=== PATIENT | male | born 1985 | race Caucasian/White ===

== ENCOUNTER 2021-05-26 10:26 | Outpatient (REF) | payer OTHER, SELFPAY ==
[2021-05-26 11:27] LABS: MANUAL DIFF FLAG NO
[2021-05-26 11:32] LABS: Basophils Percent Auto 0.5 % (0-2); Eosinophils Percent Auto 0.7 % (0-4); Hematocrit 46.2 % (42.0-52.0); Hemoglobin 15.6 g/dl (14.0-18.0); Imm Gran Abs Auto 0.03 X10*3/uL (0.00-0.03); Imm Gran Pct Auto 0.5 % (0.0-0.4); Lymphocytes Absolute Auto 1.7 X10*3/uL (1.2-4.9); Lymphocytes Percent Auto 29.2 % (20-40); Mean Corpuscular HGB Conc 33.8 g/dl (31.0-36.0); Mean Corpuscular Hemoglobin 29.4 pg (27.0-33.0); Mean Corpuscular Volume 87.2 fL (80.0-98.0); Mean Platelet Volume 10.2 fL (9.4-12.4); Monocytes Absolute Auto 0.4 X10*3/uL (0.1-1.2); Monocytes Percent Auto 7.7 % (2-11); Neutrophils Absolute Auto 3.5 x10*3/uL (2.0-8.3); Neutrophils Percent Auto 61.4 % (45-73); Platelet Count 276 X10*3/uL (160-400); Red Cell Distribution Width 12.3 % (11.0-16.0); White Blood Count 5.8 X10*3/uL (4.8-10.8)
[2021-05-26 12:21] LABS: Alanine Aminotransferase 47 U/L (0-40); Albumin Level 4.5 g/dL (3.5-5.0); Alkaline Phosphatase 62 U/L (39-117); Anion Gap 12 (12-20); Aspartate Amino Transferase 23 U/L (5-37); Bilirubin Total 1.4 mg/dL (0.0-1.0); Blood Urea Nitrogen 16 mg/dL (9-16); Calcium 10.2 mg/dL (8.4-10.2); Carbon Dioxide 28 mmol/L (22-29); Chloride 104 mmol/L (96-108); Cholesterol 214 mg/dL; Estimated Glomerular Filt Rate > 60; Glucose Fasting 93 mg/dL (60-99); HDL Cholesterol 39 mg/dL; LDL Cholesterol Calculated 143 mg/dl; Potassium 5.1 mmol/L (3.3-5.1); Sodium 139 mmol/L (135-145); TSH reflex Free T4 1.84 uIU/mL (0.32-4.0); Total Protein 7.3 g/dL (6.5-8.0); Triglycerides 163 mg/dL
[2021-05-31 22:31] LABS: Tetanus Antitoxiod Antibody 2.66 IU/mL
== END 2021-05-26 10:27 | disposition home or self-care (01) ==
LOC: HO.HMGCLDS 10:26
PROVIDERS: Visit Provider Internal Medicine
DX: Z00.01 Encounter for general adult medical examination with abnormal findings (principal); R03.0 Elevated blood-pressure reading, without diagnosis of hypertension; E66.09 Other obesity due to excess calories; Z28.39 Other underimmunization status
CPT/HCPCS: 36415; 80053; 80061; 84443; 85025; 86774

== ENCOUNTER 2022-05-28 14:51 | Outpatient (REF) | payer OTHER, SELFPAY ==
[2022-05-28 16:29] LABS: MANUAL DIFF FLAG NO
[2022-05-28 16:31] LABS: Basophils Percent Auto 0.5 % (0-2); Eosinophils Absolute Auto 0.1 X10*3/uL (0.0-0.4); Eosinophils Percent Auto 0.8 % (0-4); Hematocrit 43.9 % (42.0-52.0); Hemoglobin 14.8 g/dl (14.0-18.0); Imm Gran Abs Auto 0.02 X10*3/uL (0.00-0.03); Imm Gran Pct Auto 0.3 % (0.0-0.4); Lymphocytes Absolute Auto 1.7 X10*3/uL (1.2-4.9); Lymphocytes Percent Auto 27.4 % (20-40); Mean Corpuscular HGB Conc 33.7 g/dl (31.0-36.0); Mean Corpuscular Hemoglobin 29.4 pg (27.0-33.0); Mean Corpuscular Volume 87.3 fL (80.0-98.0); Mean Platelet Volume 10.3 fL (9.4-12.4); Monocytes Absolute Auto 0.4 X10*3/uL (0.1-1.2); Monocytes Percent Auto 7.2 % (2-11); Neutrophils Absolute Auto 3.9 x10*3/uL (2.0-8.3); Neutrophils Percent Auto 63.8 % (45-73); Platelet Count 272 X10*3/uL (160-400); Red Blood Count 5.03 X10*6/uL (4.60-5.80); Red Cell Distribution Width 12.3 % (11.0-16.0); White Blood Count 6.1 X10*3/uL (4.8-10.8)
[2022-05-28 16:51] LABS: Alanine Aminotransferase 47 U/L (0-40); Albumin Level 4.6 g/dL (3.5-5.0); Alkaline Phosphatase 61 U/L (39-117); Anion Gap 12 (12-20); Aspartate Amino Transferase 22 U/L (5-37); Bilirubin Total 1.4 mg/dL (0.0-1.0); Blood Urea Nitrogen 14 mg/dL (9-16); Calcium 9.9 mg/dL (8.4-10.2); Carbon Dioxide 28 mmol/L (22-29); Chloride 108 mmol/L (96-108); Estimated Glomerular Filt Rate > 60; Glucose Random 100 mg/dL (60-115); Potassium 4.7 mmol/L (3.3-5.1); Sodium 143 mmol/L (135-145)
[2022-05-30 09:43] LABS: LDL Cholesterol Direct 163 mg/dL (<100)
== END 2022-05-28 14:52 | disposition home or self-care (01) ==
LOC: HO.HMGCLDS 14:51
PROVIDERS: PCP Internal Medicine; Visit Provider Internal Medicine
DX: Z00.01 Encounter for general adult medical examination with abnormal findings (principal); I10 Essential (primary) hypertension; R79.89 Other specified abnormal findings of blood chemistry
CPT/HCPCS: 36415; 80053; 83721; 85025

== ENCOUNTER 2022-11-23 09:23 | Outpatient (AMB) | payer OTHER, SELFPAY ==
[2022-11-23 09:25] VITALS: BP 134/82; PULSE 75; O2SAT 98; BMI 34.4
--- NOTE | 2022-11-23 09:25 | MHC.PC.OV ---
Vital Signs 11/23/22 09:25 Height 6 ft 3 in Weight 275 lb BMI 34.4 BP 134/82 Blood Pressure Location Rt brachial Position Sitting Pulse 75 Pulse Source Pulse Oximeter Pulse Oximetry (%) 98 Oxygen Delivery Method Room Air Intake Visit Reasons: 6m follow up Allergies No Known Allergies Allergy (Verified 11/23/22 09:34) Medication List - Last Reconciled 11/23/22 by Laxmi Alvarez MD losartan 25 mg PO DAILY 90 days Tobacco use date assessed: 11/23/22 Dental Screening Dental Screen Date: 11/23/22 Did you have a dental visit in the last 12 months?: Yes Did you have a dental problem in the last 6 months where you did not have access to dental care?: No Was dental information given to patient?: Patient has dentist HPI 6m follow up HPI Details Patient is 37-year-old gentleman came in today for his 6 month follow-up appointment on blood pressure Patient is on losartan 25 mg, tolerating medication, blood pressure is well controlled it is 134/82 today however at home he says that it runs around 120s systolic He is due for labs, order placed Patient already have appointment in 6 month, next visit he will do labs fasting. BMI is elevated at 34.4, patient is already working on it he has cut down on soda and is mindful of healthy eating. He is also going to gym. Appointment with dietitian offered to patient, patient is not interested at this time. He offers no new complaints today PFSH Family History Other Substance use disorder Social History Housing: House Patient Tobacco Use Status: Current everyday Tobacco user Cigarettes Per Day: 8 e-Cigarette/Vaping Use: Never Used Current occupational status: unemployed Cognitive needs: No Hearing needs: No Vision needs: No Questionnaire PHQ-9 Over the last 2 weeks, how often have you been bothered by any of the following problems? 1. Little interest or pleasure in doing things: not at all 2. Feeling down, depressed, or hopeless: not at all 3. Trouble falling or staying asleep, or sleeping too much: not at all 4. Feeling tired or having little energy: not at all 5. Poor appetite or overeating: not at all 6. Feeling bad about yourself - or that you are a failure or have let yourself or your family down: not at all 7. Trouble concentrating on things, such as reading the newspaper or watching television: not at all 8. Moving or speaking so slowly that other people could have noticed. Or the opposite - being so fidgety or restless that you have been moving around a lot more than usual: not at all 9. Thoughts that you would be better off or of hurting yourself in some way: not at all Total score: 0 Depression Screening Interpretation: Negative Depression Screening Done: Yes 20287 - PHQ-9 Billing: Yes Source: Developed by Drs. Kenji Calvert, Sara Jordan, Alfredito Spangler and colleagues, with an educational jesus from [employer]. Thrive Questionnaire Date Thrive assessed: 05/28/22 AUDIT C Alcohol Use Questionnaire (AUDIT-C) 1. How often do you have a drink containing alcohol?: Monthly or less 2. How many drinks containing alcohol do you have on a typical day when you are drinking?: 1 or 2 3. How often do you have six or more drinks on one occasion?: Never Total Score: 1 Score Reviewed/Action Taken: Yes MITCH-7 AMB Questionnaire MITCH-7 Date MITCH - 7 assessed: 05/28/22 Source: Developed by Drs. Kenji Calvert, Sara Jordan, Alfredito Spangler and colleagues, with an educational jesus from [employer]. Review of Systems Const Denies chills, Denies excessive sweating, Denies fever(s) and Denies poor appetite Eyes Denies blurry vision and Denies eye pain ENT Denies disequilibrium, Denies sore throat, Denies throat swelling and Denies tongue swelling Card Denies chest pain at rest, Denies radiating jaw, neck or arm pain and Denies paroxysmal nocturnal dyspnea Resp Denies cough and Denies hemoptysis GI Denies melena, Denies change in stool character, Denies coffee ground emesis and Denies vomiting Musc Reports as per HPI Skin/Breast Reports as per HPI Neuro Denies tremor(s) and Denies disequilibrium Endo Denies cold intolerance and Denies excessive sweating Aller/Immun Denies throat swelling and Denies tongue swelling Physical exam (Primary Care) Vital Signs: Last Vital Signs Pulse 75 10/10/23 09:25 BP 134/82 11/23/22 09:25 Pulse Ox 98 11/23/22 09:25 Oxygen Delivery Method Room Air 11/23/22 09:25 BMI result Body Mass Index 34.4 Tobacco/Smoking Status: Tobacco use Status Tobacco use date assessed 11/23/22 11/23/22 09:34 Patient Tobacco Use Status Current everyday Tobacco 11/23/22 09:26 e-Cigarette/Vaping Use Never Used 11/23/22 09:26 PHQ-9: PHQ-9 Score PHQ-9: Total score 0 11/23/22 09:45 Depression Screening Interpretation: Negative Thrive Assessment: Date of Thrive Assessment Date Thrive assessed 05/28/22 11/23/22 09:26 Const General: cooperative, comfortable and no acute distress Orientation/consciousness: patient oriented x3 HENMT Head: Yes normocephalic and Yes atraumatic Ears: hearing grossly normal bilaterally Eyes General: appearance normal, both eyes and all related structures Neck Neck: Yes no lymphadenopathy and No tracheal deviation Resp Effort & Inspection: normal respiratory effort, able to speak in complete sentences and no audible wheezes Cardio Rhythm: regular rhythm Heart sounds: S1 normal heart sound present and S2 normal heart sound present GI Palpation (GI): Soft to palpation and nontender Auscultation: normal bowel sounds Skin General skin exam: turgor normal Neuro General: patient oriented x3 and moves all extremities Gait exam (Neuro): Normal gait present Extrem Right lower extremity: no edema Left lower extremity: no edema Psych Affect: normal affect Attitude: cooperative Assessment and Plan Assessment & Plan (1) Hypertension, essential: Code(s): I10 - Essential (primary) hypertension (2) LFT elevation: Code(s): R79.89 - Other specified abnormal findings of blood chemistry (3) Obesity due to excess calories: Code(s): E66.09 - Other obesity due to excess calories Qualifiers: Body mass index: BMI 34.0-34.9 Obesity classification: adult class 1 (BMI 30 - 34.9) Serious obesity comorbidity presence: with serious comorbidity Qualified Code(s): E66.09 - Other obesity due to excess calories; Z68.34 - Body mass index [BMI] 34.0-34.9, adult Plan Patient is 37-year-old gentleman came in today for his 6 month follow-up appointment on blood pressure Patient is on losartan 25 mg, tolerating medication, blood pressure is well controlled it is 134/82 today however at home he says that it runs around 120s systolic He is due for labs, order placed Patient already have appointment in 6 month, next visit he will do labs fasting. His liver enzymes are slightly elevated but stable BMI is elevated at 34.4, patient is already working on it he has cut down on soda and is mindful of healthy eating. He is also going to gym. Appointment with dietitian offered to patient, patient is not interested at this time. He offers no new complaints today Orders: Orders Lipid Panel 6 Months E66.09 - Other obesity due to excess calories, I10 - Essential (primary) hypertension, R79.89 - Other specified abnormal findings of blood chemistry Comprehensive Met. Panel Today E66.09 - Other obesity due to excess calories, I10 - Essential (primary) hypertension, R79.89 - Other specified abnormal findings of blood chemistry Complete Blood Count Auto Diff 6 Months E66.09 - Other obesity due to excess calories, I10 - Essential (primary) hypertension, R79.89 - Other specified abnormal findings of blood chemistry Comprehensive [place]. Panel Fast 6 Months E66.09 - Other obesity due to excess calories, I10 - Essential (primary) hypertension, R79.89 - Other specified abnormal findings of blood chemistry Medications: Refilled losartan 25 mg PO DAILY 90 tabs 0RF 90 days Coding Level of Care Code Est Pt Level 4 (71503) Diagnoses Hypertension, essential I10 LFT elevation R79.89 Class 1 obesity due to excess calories with serious comorbidity and body mass index (BMI) of 34.0 to 34.9 in adult E66.09; Z68.34 Body mass index: BMI 34.0-34.9 Obesity classification: adult class 1 (BMI 30 - 34.9) Serious obesity comorbidity presence: with serious comorbidity
== END 2022-11-23 10:19 | disposition home or self-care (01) ==
PROVIDERS: Visit Provider Internal Medicine
DX: I10 Essential (primary) hypertension (principal); R79.89 Other specified abnormal findings of blood chemistry; E66.09 Other obesity due to excess calories; Z68.34 Body mass index [BMI] 34.0-34.9, adult
CPT/HCPCS: 99214

== ENCOUNTER 2022-11-23 09:46 | Outpatient (REF) | payer OTHER, SELFPAY | END 2022-11-23 09:47 | disposition home or self-care (01) | LOC: HO.HMGCLDS 09:46 | PROVIDERS: PCP Internal Medicine; Visit Provider Internal Medicine | DX: R79.89 Other specified abnormal findings of blood chemistry (principal); E66.09 Other obesity due to excess calories; I10 Essential (primary) hypertension | CPT/HCPCS: 36415; 80053 ==

== ENCOUNTER 2023-06-21 12:28 | Outpatient (AMB) | payer OTHER, SELFPAY ==
[2023-06-21 12:30] VITALS: BP 136/88; PULSE 82; O2SAT 96; BMI 35.5
--- NOTE | 2023-06-21 12:30 | A.OFFPC_ITS ---
Vital Signs 06/21/23 12:30 Height 6 ft 3 in Weight 284 lb 6 oz BMI 35.5 BP 136/88 Blood Pressure Location Rt brachial Position Sitting Pulse 82 Pulse Source Pulse Oximeter Pulse Oximetry (%) 96 Oxygen Delivery Method Room Air Intake Visit Reasons: Annual PE Allergies No Known Allergies Allergy (Verified 06/21/23 12:30) Medication List - Last Reconciled 06/21/23 by Laxmi Alvarez MD losartan 25 mg PO DAILY 90 days Tobacco use date assessed: 06/21/23 Dental Screening Dental Screen Date: 06/21/23 Did you have a dental visit in the last 12 months?: Yes Did you have a dental problem in the last 6 months where you did not have access to dental care?: No Was dental information given to patient?: Patient has dentist HPI Annual PE HPI Details Patient is a 38-year-old gentleman came in today for physical examination Patient is taking only 1 medication for blood pressure, losartan 25 mg, tolerating medication no side effects Blood pressure is stable Patient is due for labs, order placed BMI is elevated need to lose weight Follow-up 6 months PFSH Family History Other Substance use disorder Social History Housing: House Patient Tobacco Use Status: Former Tobacco user Quit Date: 2021 Cigarettes Per Day: 8 e-Cigarette/Vaping Use: Never Used Current occupational status: unemployed Cognitive needs: No Hearing needs: No Vision needs: No Questionnaire PHQ-9 Over the last 2 weeks, how often have you been bothered by any of the following problems? 1. Little interest or pleasure in doing things: not at all 2. Feeling down, depressed, or hopeless: not at all 3. Trouble falling or staying asleep, or sleeping too much: not at all 4. Feeling tired or having little energy: not at all 5. Poor appetite or overeating: not at all 6. Feeling bad about yourself - or that you are a failure or have let yourself or your family down: not at all 7. Trouble concentrating on things, such as reading the newspaper or watching television: not at all 8. Moving or speaking so slowly that other people could have noticed. Or the opposite - being so fidgety or restless that you have been moving around a lot more than usual: not at all 9. Thoughts that you would be better off or of hurting yourself in some way: not at all Total score: 0 Depression Screening Interpretation: Negative Depression Screening Done: Yes 35206 - PHQ-9 Billing: Yes Source: Developed by Drs. Kenji Calvert, Sara Jordan, Alfredito Spangler and colleagues, with an educational jesus from [employer]. Thrive Questionnaire Date Thrive assessed: 06/21/23 I am a: Patient What is your living situation today?: I have a steady place to live Within the past 12 months, did the food you bought not last and you didn't have the money to get more?: Never true Within the past 12 months, did you worry whether your food would run out before you got money to buy more?: Never true Do you have trouble paying for medicines?: No Do you have trouble getting transportation to medical appointments?: No Do you have trouble paying your heating and electricity bill?: No Do you have trouble taking care of your child, family member or friend?: No Do you have trouble with day-to-day activities such as bathing, preparing meals, shopping, managing finances, etc.?: No Are you currently unemployed and looking for a job?: No Are you interested in more education?: Yes Please select the resources that you would like help with: None Currently or been in a relationship where the following occur: no concerns reported THRIVE Score: 0 AUDIT C Alcohol Use Questionnaire (AUDIT-C) 1. How often do you have a drink containing alcohol?: Monthly or less 2. How many drinks containing alcohol do you have on a typical day when you are drinking?: 1 or 2 3. How often do you have six or more drinks on one occasion?: Never Total Score: 1 Score Reviewed/Action Taken: Yes MITCH-7 AMB Questionnaire MITCH-7 Date MITCH - 7 assessed: 06/21/23 Feeling nervous, anxious, or on edge: 0 = Not at all Not being able to stop or control worryin = Not at all Worrying too much about different things: 0 = Not at all Trouble relaxin = Not at all Being so restless that it is hard to sit still: 0 = Not at all Becoming easily annoyed or irritable: 0 = Not at all Feeling afraid as if something awful might happen: 0 = Not at all Total MITCH-7 score (0-4 normal; 5-9 mild; 10-14 moderate; 15-21 severe): 0 Source: Developed by Drs. Kenji Calvert, Sara Jordan, Alfredito Spangler and colleagues, with an educational jesus from [employer]. MITCH-7 Assessment Billing MITCH-7 Assessment Tool: MITCH-7 Assessment 16718 Review of Systems Const Denies chills, Denies fever(s) and Denies headache(s) Eyes Denies blurry vision ENT Denies headache(s), Denies nasal discharge, Denies nasal obstruction, Denies odynophagia and Denies sinus pain Card Denies chest pain at rest and Denies chest pain with activity Resp Denies cough and Denies hemoptysis GI Denies diarrhea, Denies odynophagia, Denies vomiting and Denies hematemesis Reports as per HPI Musc Denies abnormal gait Skin/Breast Reports as per HPI Neuro Denies Neuro-related abnormal movements, Denies Abnormal speech present, Denies abnormal gait, Denies headache(s) and Denies Sensory deficit (Neuro) Psych Denies mood swings and Denies paranoia Endo Reports as per HPI [place]/Lymph Reports as per HPI Aller/Immun Reports as per HPI Physical exam (Primary Care) Vital Signs: Last Vital Signs Pulse 82 06/21/23 12:30 BP 136/88 06/21/23 12:30 Pulse Ox 96 06/21/23 12:30 Oxygen Delivery Method Room Air 06/21/23 12:30 BMI result Body Mass Index 35.5 Tobacco/Smoking Status: Tobacco use Status Tobacco use date assessed 06/21/23 06/21/23 12:35 Patient Tobacco Use Status Former Tobacco user 06/21/23 12:35 e-Cigarette/Vaping Use Never Used 06/21/23 12:35 Depression Screening Interpretation: Negative Thrive Assessment: Date of Thrive Assessment Date Thrive assessed 05/28/22 06/21/23 12:35 Currently or been in a relationship where the following occur: no concerns reported Const General: cooperative, comfortable and no acute distress Orientation/consciousness: patient oriented x3 HENMT Head: Yes normocephalic and Yes atraumatic Eyes General: appearance normal, both eyes and all related structures Pupils: Equal, round and reactive pupils present EOM: EOMs intact bilaterally Neck Neck: Yes supple and No lymphadenopathy Thyroid: Thyroid normal Lymphatic: no lymphadenopathy noted Resp Effort & Inspection: normal respiratory effort and able to speak in complete sentences Auscultation: clear to auscultation bilaterally Cardio Heart sounds: S1 normal heart sound present and S2 normal heart sound present GI Palpation (GI): Soft to palpation and nontender Auscultation: normal bowel sounds General: Yes no CVA tenderness Back/Spine/Pelvis Back: no CVA tenderness Skin General skin exam: elasticity normal and turgor normal Neuro General: patient oriented x3 and gait normal Cranial nerves: Yes Equal, round and reactive pupils present Speech: No Abnormal speech present Sensory Exam: No Sensory deficit (Neuro) Coordination: tandem gait normal and Romberg test negative Extrem General: Yes normal exam except as noted and No edema Assessment and Plan Assessment & Plan (1) Encounter for general adult medical examination with abnormal findings: Code(s): Z00.01 - Encounter for general adult medical examination with abnormal findings (2) Hypertension, essential: Code(s): I10 - Essential (primary) hypertension (3) LFT elevation: Code(s): R79.89 - Other specified abnormal findings of blood chemistry (4) Obesity due to excess calories: Code(s): E66.09 - Other obesity due to excess calories Qualifiers: Obesity classification: adult class 1 (BMI 30 - 34.9) Serious obesity comorbidity presence: with serious comorbidity Body mass index: BMI 34.0-34.9 Qualified Code(s): E66.09 - Other obesity due to excess calories; Z68.34 - Body mass index [BMI] 34.0-34.9, adult Plan Patient is a 38-year-old gentleman came in today for physical examination Patient is taking only 1 medication for blood pressure, losartan 25 mg, t olerating medication no side effects Blood pressure is stable Patient is due for labs, order placed BMI is elevated need to lose weight Follow-up 6 months Orders: Orders Comprehensive Met. Panel Today I10 - Essential (primary) hypertension, R79.89 - Other specified abnormal findings of blood chemistry, Z00.01 - Encounter for general adult medical examination with abnormal findings LDL Cholesterol Direct Today I10 - Essential (primary) hypertension, R79.89 - Other specified abnormal findings of blood chemistry, Z00.01 - Encounter for general adult medical examination with abnormal findings Complete Blood Count Auto Diff Today I10 - Essential (primary) hypertension, R79.89 - Other specified abnormal findings of blood chemistry, Z00.01 - Encounter for general adult medical examination with abnormal findings Coding Level of Care Code Est Pt Prev Care 40-64y(99323) Diagnoses Encounter for general adult medical examination with abnormal findings Z00.01 Hypertension, essential I10 LFT elevation R79.89 Class 1 obesity due to excess calories with serious comorbidity and body mass index (BMI) of 34.0 to 34.9 in adult E66.09; Z68.34 Obesity classification: adult class 1 (BMI 30 - 34.9) Serious obesity comorbidity presence: with serious comorbidity Body mass index: BMI 34.0-34.9 Additional Codes MITCH-7 Assessment Billing - MITCH-7 Assessment Tool: MITCH-7 Assessment [id number] ([id number])
== END 2023-06-21 14:30 | disposition home or self-care (01) ==
PROVIDERS: PCP Internal Medicine; Visit Provider Internal Medicine
DX: Z00.00 Encounter for general adult medical examination without abnormal findings (principal); I10 Essential (primary) hypertension; Z68.34 Body mass index [BMI] 34.0-34.9, adult; E66.09 Other obesity due to excess calories; R79.89 Other specified abnormal findings of blood chemistry
CPT/HCPCS: 99395

== ENCOUNTER 2023-06-21 12:51 | Outpatient (REF) | payer OTHER, SELFPAY ==
[2023-06-21 16:21] LABS: MANUAL DIFF FLAG NO
[2023-06-21 16:38] LABS: Basophils Percent Auto 0.6 % (0-2); Eosinophils Absolute Auto 0.1 X10*3/uL (0.0-0.4); Hematocrit 44.1 % (42.0-52.0); Imm Gran Abs Auto 0.02 X10*3/uL (0.00-0.03); Imm Gran Pct Auto 0.4 % (0.0-0.4); Lymphocytes Absolute Auto 1.8 X10*3/uL (1.2-4.9); Lymphocytes Percent Auto 33.5 % (20-40); Mean Corpuscular Hemoglobin 29.9 pg (27.0-33.0); Mean Corpuscular Volume 87.8 fL (80.0-98.0); Mean Platelet Volume 10.2 fL (9.4-12.4); Monocytes Absolute Auto 0.4 X10*3/uL (0.1-1.2); Neutrophils Percent Auto 56.5 % (45-73); Platelet Count 280 X10*3/uL (160-400); Red Blood Count 5.02 X10*6/uL (4.60-5.80); Red Cell Distribution Width 12.2 % (11.0-16.0); White Blood Count 5.3 X10*3/uL (4.8-10.8)
[2023-06-21 17:10] LABS: Alanine Aminotransferase 36 U/L (0-40); Albumin Level 4.5 g/dL (3.5-5.0); Alkaline Phosphatase 57 U/L (39-117); Anion Gap 15 (12-20); Aspartate Amino Transferase 19 U/L (5-37); Bilirubin Total 0.9 mg/dL (0.0-1.0); Blood Urea Nitrogen 16 mg/dL (9-16); Calcium 10.1 mg/dL (8.4-10.2); Carbon Dioxide 24 mmol/L (22-29); Chloride 108 mmol/L (96-108); Estimated Glomerular Filt Rate 58; Glucose Random 91 mg/dL (60-115); Potassium 4.3 mmol/L (3.3-5.1); Sodium 143 mmol/L (135-145); Total Protein 7.3 g/dL (6.5-8.0)
[2023-06-22 09:14] LABS: LDL Cholesterol Direct 165 mg/dL (<100)
== END 2023-06-21 12:52 | disposition home or self-care (01) ==
LOC: HO.HMGCLDS 12:51
PROVIDERS: PCP Internal Medicine; Visit Provider Internal Medicine
DX: Z00.01 Encounter for general adult medical examination with abnormal findings (principal); I10 Essential (primary) hypertension; R79.89 Other specified abnormal findings of blood chemistry
CPT/HCPCS: 36415; 80053; 83721; 85025

== ENCOUNTER 2024-07-04 10:20 | Outpatient (AMB) | payer OTHER, SELFPAY ==
--- NOTE | 2024-07-04 10:22 | A.OFFPC_ITS ---
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 Accompanied by: Self / Same As Patient Allergies No Known Allergies Allergy (Verified 07/04/24 10:23) Medication List - Last Reconciled 07/04/24 by Laxmi Alvarez MD losartan 25 mg PO DAILY 90 days Tobacco use date assessed: 07/04/24 Dental Screening Dental Screen Date: 07/04/24 Did you have a dental visit in the last 12 months?: Yes Did you have a dental problem in the last 6 months where you did not have access to dental care?: No Was dental information given to patient?: Patient has dentist HPI Annual PE HPI Details Physical exam appointment - The patient is a 39-year-old male - patient states that his noticed m ild swelling lower extremity over the shins recurrently However at this time there is no swelling on examination History of hypertension currently taking losartan 25 mg Blood pressure is running in 130s systolic Patient was encouraged to keep a log of his blood pressure readings at home and bring it along next visit BMI is elevated at 34.4 His LDL is elevated in 160s however patient is reluctant to start medication Health Maintenance - Engaged in efforts to eat healthier an d lose weight. - Attempting to reduce dietary fat intak e to manage cholesterol levels. - Avoidance of soda and high-sodium food s, such as salted rice and butter. - Regular physical exercise and increase d activity level. - Blood pressure management discussed, w ith a consistent emphasis on medication adherence. - The importance of LDL and cholesterol management due to high blood pressure and obesity was emphasized. 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 Patient Instructions - Keep a log of blood pressure readings. - Return if swelling persists and bring a picture for evaluation. - Submit an updated email address for po rtal access. - If trying to check blood pressure, aim for three times a month. - Mentioned follow-up in six months for general health evaluation and blood work. Review of Systems - General: No fever no chills - Neurological: No headaches no dizzin ess - Ear nose throat: No sore throat no hearing difficulty no ear pain - Cardiovascular: No syncope, no chest pain, no palpitations - Gastrointestinal: No nausea vomiting or diarrhea - Endocrine: No polyuria polydipsia no heat intolerance - Genitourinary: No dysuria - Skin: No new complaints Physical Exam General: Cooperative, healthy appearing, comfortable, no acute distress Orientation: Patient oriented x3 Limitations: None Head: Normal to inspection Ears: Within normal limit visually Nose: Normal external nose present Face and sinus: Normal facial exam Eyes: Appearance normal, extraocular movement intact pupils reactive Neck: Normal visual inspection and supple Respiratory: Normal respiratory effort and able to speak in complete sentences. Clear to auscultation, no stridor Cardiovascular: S1 and S2 RRR GI: Normal to inspection. Soft to palpation and nontender Skin: Turgor normal, no acute findings, no moles, no rashes, no skin problems Neuro: Patient oriented x3, motor sensory intact, balance intact, tandem pass Extremities: Normal to inspection, no edema, no pain in knees, no fluid in legs PFSH Surgical History No pertinent past surgical history Family History Other Substance use disorder Social History Housing: House Patient Tobacco Use Status: Former Tobacco user Cigarettes Per Day: 8 e-Cigarette/Vaping Use: Never Used Current occupational status: unemployed Cognitive needs: No Hearing needs: No Vision needs: No Questionnaire PHQ-9 Over the last 2 weeks, how often have you been bothered by any of the following problems? 1. Little interest or pleasure in doing things: not at all 2. Feeling down, depressed, or hopeless: not at all 3. Trouble falling or staying asleep, or sleeping too much: not at all 4. Feeling tired or having little energy: not at all 5. Poor appetite or overeating: not at all 6. Feeling bad about yourself - or that you are a failure or have let yourself or your family down: not at all 7. Trouble concentrating on things, such as reading the newspaper or watching television: not at all 8. Moving or speaking so slowly that other people could have noticed. Or the opposite - being so fidgety or restless that you have been moving around a lot more than usual: not at all 9. Thoughts that you would be better off or of hurting yourself in some way: not at all Total score: 0 Depression Screening Interpretation: Negative Depression Screening Done: Yes 98693 - PHQ-9 Billing: Yes Source: Developed by Drs. Kenji Calvert, Sara Jordan, Alfredito Spangler and colleagues, with an educational jesus from [employer]. Thrive Questionnaire Date Thrive assessed: 07/04/24 I am a: Patient What is your living situation today?: I have a steady place to live Within the past 12 months, did the food you bought not last and you didn't have the money to get more?: Never true Within the past 12 months, did you worry whether your food would run out before you got money to buy more?: Never true Do you have trouble paying for medicines?: No Do you have trouble getting transportation to medical appointments?: No Do you have trouble paying your heating and electricity bill?: No Do you have trouble taking care of your child, family member or friend?: No Do you have trouble with day-to-day activities such as bathing, preparing meals, shopping, managing finances, etc.?: No Are you currently unemployed and looking for a job?: Yes Are you interested in more education?: No Please select the resources that you would like help with: None Currently or been in a relationship where the following occur: No concerns reported THRIVE Score: 0 AUDIT C Alcohol Use Questionnaire (AUDIT-C) 1. How often do you have a drink containing alcohol?: Never 3. How often do you have six or more drinks on one occasion?: Never Total Score: 0 Score Reviewed/Action Taken: Yes MITCH-7 AMB Questionnaire MITCH-7 Date MITCH - 7 assessed: 07/04/24 Feeling nervous, anxious, or on edge: 0 = Not at all Not being able to stop or control worryin = Not at all Worrying too much about different things: 0 = Not at all Trouble relaxin = Not at all Being so restless that it is hard to sit still: 0 = Not at all Becoming easily annoyed or irritable: 0 = Not at all Feeling afraid as if something awful might happen: 0 = Not at all Total MITCH-7 score (0-4 normal; 5-9 mild; 10-14 moderate; 15-21 severe): 0 Source: Developed by Drs. Kenji Calvert, Sara Jordan, Alfredito Spangler and colleagues, with an educational jesus from [employer]. MITCH-7 Assessment Billing MITCH-7 Assessment Tool: MITCH-7 Assessment 93605 Physical exam (Primary Care) Vital Signs: Last Vital Signs Pulse 68 07/04/24 10:23 BP 132/80 07/04/24 10:23 Pulse Ox 97 07/04/24 10:23 Oxygen Delivery Method Room Air 07/04/24 10:23 BMI result Body Mass Index 34.4 Tobacco/Smoking Status: Tobacco use Status Tobacco use date assessed 07/04/24 07/04/24 10:25 Patient Tobacco Use Status Former Tobacco user 07/04/24 10:25 e-Cigarette/Vaping Use Never Used 07/04/24 10:25 PHQ-9: PHQ-9 Score PHQ-9: Total score 0 07/04/24 10:52 Depression Screening Interpretation: Negative Thrive Assessment: Date of Thrive Assessment Date Thrive assessed 07/04/24 07/04/24 10:25 Currently or been in a relationship where the following occur: No concerns reported Coding Level of Care Code Est Pt Level 3 (48407) Est Pt Prev Care 18-39y(90466) Diagnoses Encounter for general adult medical examination with abnormal findings Z00.01 Hypertension, essential I10 Class 1 obesity due to excess calories with serious comorbidity and body mass index (BMI) of 34.0 to 34.9 in adult E66.09; Z68.34 Body mass index: BMI 34.0-34.9 Obesity classification: adult class 1 (BMI 30 - 34.9) Serious obesity comorbidity presence: with serious comorbidity Lipid disorder E78.9 Additional Codes MITCH-7 Assessment Billing - MITCH-7 Assessment Tool: MITCH-7 Assessment 55308 ([id number]) PHQ-9 - 07930 - PHQ-9 Billing: Yes ([id number]) Assessment & Plan Assessment & Plan (1) Encounter for general adult medical examination with abnormal findings: Code(s): Z00.01 - Encounter for general adult medical examination with abnormal findings Category: Medical (2) Hypertension, essential: Code(s): I10 - Essential (primary) hypertension Category: Medical (3) Obesity due to excess calories: Code(s): E66.09 - Other obesity due to excess calories Category: Medical Qualifiers: Body mass index: BMI 34.0-34.9 Obesity classification: adult class 1 (BMI 30 - 34.9) Serious obesity comorbidity presence: with serious comorbidity Qualified Code(s): E66.09 - Other obesity due to excess calories; Z68.34 - Body mass index [BMI] 34.0-34.9, adult (4) Lipid disorder: Code(s): E78.9 - Disorder of lipoprotein metabolism, unspecified Category: Medical Plan Physical exam appointment - The patient is a 39-year-old male - patient states that his noticed mild swelling lower extremity over the shins recurrently However at this time there is no swelling on examination History of hypertension currently taking losartan 25 mg Blood pressure is running in 130s systolic Patient was encouraged to keep a log of his blood pressure readings at home and bring it along next visit BMI is elevated at 34.4 His LDL is elevated in 160s however patient is reluctant to start medication Health Maintenance - Engaged in efforts to eat healthier and lose weight. - Attempting to reduce dietary fat intake to manage cholesterol levels. - Avoidance of soda and high-sodium foods, such as salted rice and butter. - Regular physical exercise and increased activity level. - Blood pressure management discussed, with a consistent emphasis on medication adherence. - The importance of LDL and cholesterol management due to high blood pressure and obesity was emphasized. 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 Patient Instructions - Keep a log of blood pressure readings. - Return if swelling persists and bring a picture for evaluation. - Submit an updated email address for portal access. - If trying to check blood pressure, aim for three times a month. - Mentioned follow-up in six months for general health evaluation and blood work. Orders: Orders Comprehensive Met. Panel Today E66.09 - Other obesity due to excess calories, E78.9 - Disorder of lipoprotein metabolism, unspecified, I10 - Essential (primary) hypertension, Z00.01 - Encounter for general adult medical examination with abnormal findings, Z68.34 - Body mass index [BMI] 34.0-34.9, adult Comprehensive [place]. Panel Fast Today E66.09 - Other obesity due to excess calories, E78.9 - Disorder of lipoprotein metabolism, unspecified, I10 - Essential (primary) hypertension, Z00.01 - Encounter for general adult medical examination with abnormal findings, Z68.34 - Body mass index [BMI] 34.0-34.9, adult Vitamin D 25-OH (D2 and D3) Today E66.09 - Other obesity due to excess calories, E78.9 - Disorder of lipoprotein metabolism, unspecified, I10 - Essential (primary) hypertension, Z00.01 - Encounter for general adult medical examination with abnormal findings, Z68.34 - Body mass index [BMI] 34.0-34.9, adult TSH reflex Free T4 Today E66.09 - Other obesity due to excess calories, E78.9 - Disorder of lipoprotein metabolism, unspecified, I10 - Essential (primary) hypertension, Z00.01 - Encounter for general adult medical examination with abnormal findings, Z68.34 - Body mass index [BMI] 34.0-34.9, adult Lipid Panel Today E66.09 - Other obesity due to excess calories, E78.9 - Disorder of lipoprotein metabolism, unspecified, I10 - Essential (primary) hypertension, Z00.01 - Encounter for general adult medical examination with abnormal findings, Z68.34 - Body mass index [BMI] 34.0-34.9, adult
[2024-07-04 10:23] VITALS: BP 132/80; PULSE 68; O2SAT 97; BMI 34.4
== END 2024-07-04 10:54 | disposition home or self-care (01) ==
LOC: HO.HMCC 10:21
PROVIDERS: PCP Internal Medicine; Visit Provider Internal Medicine
DX: Z00.01 Encounter for general adult medical examination with abnormal findings (principal); I10 Essential (primary) hypertension; E66.09 Other obesity due to excess calories; Z68.34 Body mass index [BMI] 34.0-34.9, adult; E78.9 Disorder of lipoprotein metabolism, unspecified

== ENCOUNTER → 2024-07-04 10:20 | Outpatient (BNVA) | payer OTHER, SELFPAY | PROVIDERS: PCP Internal Medicine; Visit Provider Internal Medicine | DX: Z00.01 Encounter for general adult medical examination with abnormal findings (principal); I10 Essential (primary) hypertension; E66.09 Other obesity due to excess calories; E78.9 Disorder of lipoprotein metabolism, unspecified; Z68.34 Body mass index [BMI] 34.0-34.9, adult | CPT/HCPCS: 96127; 99212; 99395 ==

== ENCOUNTER 2024-07-05 08:50 | Outpatient (REF) | payer OTHER, SELFPAY ==
[2024-07-05 11:20] LABS: Alanine Aminotransferase 44 U/L (0-40); Albumin Level 4.5 g/dL (3.5-5.0); Alkaline Phosphatase 66 U/L (39-117); Anion Gap 10 (12-20); Aspartate Amino Transferase 28 U/L (5-37); Bilirubin Total 0.8 mg/dL (0.0-1.0); Blood Urea Nitrogen 16 mg/dL (9-16); Calcium 9.7 mg/dL (8.4-10.2); Carbon Dioxide 26 mmol/L (22-29); Chloride 109 mmol/L (96-108); Cholesterol 185 mg/dL (<200); Estimated Glomerular Filt Rate > 60; Glucose Fasting 107 mg/dL (60-99); HDL Cholesterol 37 mg/dL (>40); LDL Cholesterol Calculated 130 mg/dL (<100); Potassium 4.9 mmol/L (3.3-5.1); Sodium 140 mmol/L (135-145); Total Protein 7.1 g/dL (6.5-8.0); Triglycerides 94 mg/dL (<150)
[2024-07-05 11:46] LABS: TSH reflex Free T4 1.31 uIU/mL (0.32-4.0)
[2024-07-09 17:58] LABS: Vitamin D 25-OH, D2 <4 ng/mL; Vitamin D 25-OH, D3 23 ng/mL; Vitamin D 25-OH, Total 23 ng/mL (30-100)
== END 2024-07-05 08:51 | disposition home or self-care (01) ==
LOC: HO.HMGCLDS 08:50
PROVIDERS: PCP Internal Medicine; Visit Provider Internal Medicine
DX: Z00.01 Encounter for general adult medical examination with abnormal findings (principal); I10 Essential (primary) hypertension; E66.09 Other obesity due to excess calories; Z68.34 Body mass index [BMI] 34.0-34.9, adult; E78.9 Disorder of lipoprotein metabolism, unspecified
CPT/HCPCS: 36415; 80053; 80061; 82306; 84443

== ENCOUNTER 2024-07-12 08:18 | Outpatient (AMB) | payer OTHER, SELFPAY ==
--- NOTE | 2024-07-12 09:34 | MHC.PC.OV ---
Intake Visit Reasons: Lab result/?pre diabetes Allergies No Known Allergies Allergy (Verified 07/04/24 10:23) Medication List - Last Reconciled 07/12/24 by Laxmi Alvarez MD losartan 25 mg PO DAILY 90 days Tobacco use date assessed: 07/04/24 Dental Screening Dental Screen Date: 07/04/24 HPI Lab result/?pre diabetes HPI Details History - The patient is a 39-year-old male presenting with elevated blood glucose levels indicative of prediabetes. - Recent laboratory results indicated high blood sugar levels. - The patient acknowledges a family history of diabetes on the paternal side, with the grandmother having had diabetes. - The patient's vitamin D levels were reported as low in the recent lab results. - Previous cholesterol levels showed improvement; LDL decreased from 143 in 2021 to 130 currently, which is within acceptable limits. - Current BMI is noted at 34.4, which is above the recommended range (25 or below). Problem List - Prediabetes - Vitamin D deficiency - Elevated Body Mass Index (BMI) Patient Instructions - Maintain a healthy weight through regular exercise. - Avoid sugars in the diet. - Continue daily walking exercises. - Begin taking vitamin D supplements as prescribed. - Continue efforts to reduce cholesterol by maintaining a healthy diet. - Monitor blood sugar levels regularly. Review of Systems - General: No fever no chills - Neurological: No headaches no dizziness - Ear nose throat: No sore throat no hearing difficulty no ear pain - Cardiovascular: No syncope, no chest pain, no palpitations - Gastrointestinal: No nausea vomiting or diarrhea PFSH Surgical History No pertinent past surgical history Family History Other Substance use disorder Social History Housing: House Patient Tobacco Use Status: Former Tobacco user Cigarettes Per Day: 8 e-Cigarette/Vaping Use: Never Used Current occupational status: unemployed Cognitive needs: No Hearing needs: No Vision needs: No Questionnaire Thrive Questionnaire Date Thrive assessed: 07/04/24 MITCH-7 AMB Questionnaire MITCH-7 Date MITCH - 7 assessed: 07/04/24 Source: Developed by Drs. Kenji Calvert, Sara B.W. Alfredito Jordan and colleagues, with an educational jesus from [employer]. Physical exam (Primary Care) Tobacco/Smoking Status: Tobacco use Status Tobacco use date assessed 07/04/24 07/10/24 14:13 Patient Tobacco Use Status Former Tobacco user 07/10/24 14:13 e-Cigarette/Vaping Use Never Used 07/10/24 14:13 Thrive Assessment: Date of Thrive Assessment Date Thrive assessed 07/04/24 07/10/24 14:13 Telehealth Telehealth Telehealth Platform: [facility] Location of provider rendering services: practice address Location of patient: address on file Patient Identification confirmed using: Name, : Yes Telehealth method: voice only Patient verbally consented to treatment: Yes Patient verbally consented to billing insurance company: Yes Patient informed of any privacy concerns related to visit: Yes Minutes spent on Phone/Video with Pt.: 13 Coding Level of Care Code Tele Est Pt Level 3 (33287) Diagnoses Pre-diabetes R73.03 Class 1 obesity due to excess calories with serious comorbidity and body mass index (BMI) of 34.0 to 34.9 in adult E66.09; Z68.34 Obesity classification: adult class 1 (BMI 30 - 34.9) Serious obesity comorbidity presence: with serious comorbidity Body mass index: BMI 34.0-34.9 Vitamin D deficiency E55.9 Assessment & Plan Assessment & Plan (1) Pre-diabetes: Code(s): R73.03 - Prediabetes Category: Medical (2) Obesity due to excess calories: Code(s): E66.09 - Other obesity due to excess calories Category: Medical Qualifiers: Obesity classification: adult class 1 (BMI 30 - 34.9) Serious obesity comorbidity presence: with serious comorbidity Body mass index: BMI 34.0-34.9 Qualified Code(s): E66.09 - Other obesity due to excess calories; Z68.34 - Body mass index [BMI] 34.0-34.9, adult (3) Vitamin D deficiency: Code(s): E55.9 - Vitamin D deficiency, unspecified Category: Medical Plan History - The patient is a 39-year-old male presenting with elevated blood glucose levels indicative of prediabetes. - Recent laboratory results indicated high blood sugar levels. - The patient acknowledges a family history of diabetes on the paternal side, with the grandmother having had diabetes. - The patient's vitamin D levels were reported as low in the recent lab results. - Previous cholesterol levels showed improvement; LDL decreased from 143 in 2021 to 130 currently, which is within acceptable limits. - Current BMI is noted at 34.4, which is above the recommended range (25 or below). Problem List - Prediabetes - Vitamin D deficiency - Elevated Body Mass Index (BMI) Patient Instructions - Maintain a healthy weight through regular exercise. - Avoid sugars in the diet. - Continue daily walking exercises. - Begin taking vitamin D supplements as prescribed. - Continue efforts to reduce cholesterol by maintaining a healthy diet. - Monitor blood sugar levels regularly. Medications: New cholecalciferol (vitamin D3) 25 mcg PO DAILY 90 days 90 caps 1RF
== END 2024-07-12 10:27 | disposition home or self-care (01) ==
LOC: HO.HMCC 08:18
PROVIDERS: PCP Internal Medicine; Visit Provider Internal Medicine
DX: R73.03 Prediabetes (principal); E66.09 Other obesity due to excess calories; Z68.34 Body mass index [BMI] 34.0-34.9, adult; E55.9 Vitamin D deficiency, unspecified

== ENCOUNTER → 2024-07-12 08:18 | Outpatient (BNVA) | payer OTHER, SELFPAY | PROVIDERS: PCP Internal Medicine; Visit Provider Internal Medicine | DX: Z13.89 Encounter for screening for other disorder (principal) ==